=== PATIENT | male | born 1990 | race Caucasian/White ===

== ENCOUNTER 2018-12-23 13:38 | Emergency (ER) | payer OTHER ==
[~2018-12-23] VITALS: Ht 177.8 cm; Wt 88.6 kg
[2018-12-23] MEDS ORDERED: NORVASC2.5 MG PO (14:42)
[2018-12-23] MEDS ORDERED: FLEXERIL 1010 MG/TAB PO (15:09)
[2018-12-23 15:40] VITALS: BP 125/77; PULSE 68
== END 2018-12-23 15:40 | disposition home or self-care (01) ==
LOC: COL.ER 13:38
DX: R20.2 Paresthesia of skin (principal); R07.89 Other chest pain; M54.2 Cervicalgia; I10 Essential (primary) hypertension; G43.909 Migraine, unspecified, not intractable, without status migrainosus
CPT/HCPCS: J1885

== ENCOUNTER → 2019-10-31 | Outpatient (CLI) | payer OTHER ==
[~2019-10-31] MED LIST: FLEXERIL 1010 MG/TAB PO; NORVASC2.5 MG PO
== END ==
LOC: COL.RAD 13:54
DX: G43.709 Chronic migraine without aura, not intractable, without status migrainosus (principal); J34.89 Other specified disorders of nose and nasal sinuses
CPT/HCPCS: A9585